=== PATIENT | male | born 1960 | race Caucasian/White ===

== ENCOUNTER 2022-10-31 10:34 | Emergency (ER) | payer MEDICAID ==
[~2022-10-31] VITALS: Ht 170.2 cm; Wt 109.0 kg
[2022-10-31 10:38] VITALS: O2SAT 97
[2022-10-31] MEDS ORDERED: TETANUS, DIPHTHERIA, PERTUSSIS VAC/PF 0.5ML (>10YR OLD) IM ONE (11:30)
[2022-10-31] MEDS ORDERED: ACETAMINOPHEN 325MG TABLET PO ONE (11:30)
[2022-10-31] MEDS ORDERED: LIDOCAINE HCL 2%/EPINEPHRINE/PF 10 ML VIAL INFIL ONE (13:00)
[2022-10-31] MEDS ORDERED: LIDOCAINE 2%/EPINEPHRINE 1:200,000 20 ML VIAL INJ NR (13:45)
[2022-10-31 15:26] VITALS: BP 125/89; PULSE 65; RESP 19; TEMP 97.9
== END 2022-10-31 15:27 | disposition home or self-care (01) ==
LOC: ER 10:34
DX: S01.81XA Laceration without foreign body of other part of head, initial encounter (principal); S01.111A Laceration without foreign body of right eyelid and periocular area, initial encounter; I10 Essential (primary) hypertension; X58.XXXA Exposure to other specified factors, initial encounter; Y93.89 Activity, other specified; Y92.89 Other specified places as the place of occurrence of the external cause; Y99.8 Other external cause status
CPT/HCPCS: 70450; 70486; 90715; 12015; 90471; 99285; Z7610 ×2; J3490

== ENCOUNTER 2022-11-05 08:20 | Emergency (ER) | payer MEDICAID ==
[~2022-11-05] VITALS: Ht 170.2 cm; Wt 109.0 kg
[2022-11-05 08:29] VITALS: TEMP 99; O2SAT 99
[2022-11-05] MEDS ORDERED: DOXY-456 MT (09:22)
[2022-11-05] MEDS ORDERED: TOPUD MT (09:22)
[2022-11-05 09:42] VITALS: BP 144/80; PULSE 63; RESP 18
== END 2022-11-05 09:43 | disposition home or self-care (01) ==
LOC: ER 08:20
DX: Z48.02 Encounter for removal of sutures (principal)
CPT/HCPCS: 99283; Z7610 ×2

== ENCOUNTER 2022-11-08 09:43 | Emergency (ER) | payer MEDICAID ==
[~2022-11-08] VITALS: Ht 175.3 cm; Wt 81.0 kg
[~2022-11-08 09:43] MED LIST: DOXY-456 MT; TOPUD MT
[2022-11-08 10:02] VITALS: BP 156/85; PULSE 68; RESP 20; TEMP 98; O2SAT 98
== END 2022-11-08 10:30 | disposition home or self-care (01) ==
LOC: ER 09:53
DX: S01.81XD Laceration without foreign body of other part of head, subsequent encounter (principal); I10 Essential (primary) hypertension; X58.XXXD Exposure to other specified factors, subsequent encounter
CPT/HCPCS: 99281